=== PATIENT | female | born 1990 | race Caucasian/White ===

== ENCOUNTER 2017-05-25 17:56 | Emergency (ER) | payer SELFPAY ==
[2017-05-25] MEDS ORDERED: LORazepam TAB(*) 1 MG PO ONE (23:32)
--- NOTE | 2017-05-26 00:07 | ED ---
Substance Abuse/Use - HPI Summary HPI Summary: Pt here w/ concern of eating brownies at a [employer] party she and hosted last night. As they were cleaning up, they saw brownies left over and decided to have a late night snack before bed. They ate these around 23:00 and then went to bed shortly after. Pt denies ingesting any drugs/ETOG throughout the evening. No other substances were ingested to her knowledge. Pt reports waking at 2:00am today and reports she "high - relaxed" for 5 minutes. Then brain was going fast and body felt like it was glitching. SHe tried to take a cold shower to "wake up/snap out of it" but sensations were dulled and she couldn't feel the cold water, but was shivering. She has had water and pretzels today without difficulty. She also experienced rapid heart rate and anxiety which persists today. Denies ANAND, chest pain, SOB, ab pain, fever, chills, syncope or any injuries as a result of this feeling. She and her are unsure of who brought these brownies and what may have been in them but they suspect marijuana. - History Of Current Complaint Chief Complaint: EDGeneral Stated Complaint: IN CONTACT WITH DRUGS Time Seen by Provider: 05/25/17 21:10 Hx Obtained From: Patient, Family/Regular Senior Care Provider - - Allergies/Home Medications Allergies/Adverse Reactions: Allergies Allergy/AdvReac Type Severity Reaction Status Date / Time No Known Allergies Allergy Verified 01/07/15 14:32 PMH/Surg Hx/FS Hx/Imm Hx Previously Healthy: Yes Endocrine/Hematology History: Denies: Hx Anticoagulant Therapy, Hx Blood Disorders Cardiovascular History: Denies: Hx Angina, Hx Atrial Fibrillation, Hx Congenital Heart Disease Respiratory History: Denies: Hx Asthma Psychiatric History: Reports: Hx Anxiety - takes venlafaxine daily - Surgical History Surgery Procedure, Year, and Place: ovarian cyst - Immunization History Date of Tetanus Vaccine: UNK Date of Influenza Vaccine: winter 2010 Immunizations Up to Date: Yes Infectious Disease History: No Infectious Disease History: 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 Denies: Hx Clostridium Difficile, Hx Hepatitis, Hx Human Immunodeficiency Virus (HIV), Hx of Known/Suspected MRSA, Hx Shingles, Hx Known/Suspected VRSA, History Other Infectious Disease, Traveled Outside the [place] in Last 30 Days - Family History Known Family History: Positive: None - Social History Occupation: Student - grad student Lives: With Family Alcohol Use: Rare Hx Substance Use: No Substance Use Type: Reports: None Hx Tobacco Use: No Smoking Status (MU): Never Smoked Tobacco Review of Systems Constitutional: Negative Eyes: Negative ENT: Negative Cardiovascular: Other - as in HPI Respiratory: Negative Gastrointestinal: Negative Positive: no symptoms reported Musculoskeletal: Negative Skin: Negative Neurological: Other - see HPI Psychological: Other - anxious, paranoid All Other Systems Reviewed And Are Negative: Yes Physical Exam Triage Information Reviewed: Yes Vital Signs On Initial Exam: Initial Vitals Temp Pulse Resp BP Pulse Ox 98.4 F 90 20 118/64 100 05/25/17 18:07 05/25/17 18:07 05/25/17 18:07 05/25/17 18:07 05/25/17 18:07 Vital Signs Reviewed: Yes Appearance: Positive: Well-Nourished - appears fatigued, sclera are with mild injection, no d/c - wearing hoodie over head, appears scared, tearful at times but good historian, speech is clear and coordinated Skin: Positive: Warm, Dry Head/Face: Positive: Normal Head/Face Inspection Eyes: Positive: EOMI ENT: Positive: Hearing grossly normal, Pharynx normal - mucosa moist Respiratory/Lung Sounds: Positive: Breath Sounds Present Cardiovascular: Positive: Normal, RRR Abdomen Description: Positive: Nontender, Soft Bowel Sounds: Positive: Present Musculoskeletal: Positive: Normal, Strength/ROM Intact Neurological: Positive: Sensory/Motor Intact, Alert, Oriented to Person Place, Time, CN Intact II-III, Other - subtle intention tremor Psychiatric: Positive: Anxious - tearful at times but consolable - reports she' s tired and wants to go home and go to bed - no hallucination and no SI/HI - [place] Coma Scale Coma Scale Total: 15 Diagnostics - Vital Signs Vital Signs Temp Pulse Resp BP Pulse Ox 05/25/17 23:55 16 05/25/17 23:05 98.2 F 75 16 121/48 100 05/25/17 21:17 98.4 F 84 16 122/67 100 05/25/17 18:07 98.4 F 90 20 118/64 100 - Laboratory Lab Statement: Any lab studies that have been ordered have been reviewed, and results considered in the medical decision making process. Course/Dx - Course Course Of Treatment: Pt here w/ feeling dulled sensations, anxiety, rapid HR and generalized fatigue after a constitution party last night. The only thing she can link to this feeling is eating a brownie before bed - she suspects it may have had some element of marijuana in it but not sure. Feeling better since she's been here but still not right. Offered drug tox screening to comprehensively assess for possible substance (s) in body at this time as she is not sure. Sx do correlate with THC intoxication but she would like further testing to confirm. Provided ativan to reduce sx of shaking, anxiety and paranoia. Reviewed danger s /sx of when to return to ED. Pt agrees w/ plan. - Diagnoses Provider Diagnoses: Drugged feeling Discharge - Discharge Plan Condition: Stable Disposition: HOME Additional Instructions: You are feeling drugged after a constitution party you hosted last night. Although you did not willing ingest any chemicals to alter your nervous system, you are having symptoms of an altered nervous system most in line with intoxication by marijuana. A drug toxicology screen was performed to confirm what may be in your system. You were also given ativan to reduce your anxiety/paranoia side effects from drugged feeling. It is important that you follow-up with your PCP if symptoms persist. If worse, return to ED.
[2017-05-26 00:14] VITALS: BP 114/66
[2017-05-26 00:15] LABS: Benzodiazepine Urine Screen None Detected (None Detect)
== END 2017-05-26 00:13 | disposition home or self-care (01) ==
LOC: ED 17:56
DX: Z77.098 Contact with and (suspected) exposure to other hazardous, chiefly nonmedicinal, chemicals (principal)
CPT/HCPCS: 36415; 80307; 99282; A9270-GY